=== PATIENT | male | born 1990 | race Caucasian/White ===

== ENCOUNTER 2019-03-19 03:15 | Emergency (ER) | payer MEDICAID ==
[~2019-03-19] VITALS: Ht 177.8 cm; Wt 83.9 kg
[2019-03-19 03:15] VITALS: BP 133/91
--- NOTE | 2019-03-19 03:22 | NUR ---
PT AMBULATED WITH SLOW STEADY GAIT FROM [facility] TO BED #8
--- NOTE | 2019-03-19 03:32 | NUR ---
28 Y/O MALE BIB AMBULANCE. PRESENTS TO ED, C/O RIGHT FACIAL SWELLING X6 DAYS. PT STATES TIGHTENING OF THROAT DUE TO FACIAL SWELLING; DENIES SOB/RESPIRATORY DISTRESS. FACIAL SWELLING IS WARM TO TOUCH, NO DISCHARGE/BLEEDING. PT STATES BEING RX UNKNOWN ABX FOR LEFT CHEST CELLULITIS. PT C/O LOWER BACK PAIN 03/01, HX OF SCIATICA; TOOK MOTRIN 2 DAYS AGO; MEDICATION INEFFECTIVE. PT STABLE.
[2019-03-19] MEDS ORDERED: cefTRIAXone 1,000 MG in LIDOCAINE MPF 1% 2.1 ML IM ONE (03:45)
[2019-03-19 03:58] VITALS: BP 133/91
--- NOTE | 2019-03-19 03:58 | NUR ---
PT DISCHARGED WITH PAPERWORK. RX KEFLEX, STRIBILD, BACTRIM. EDUCATED PT REGARDING MEDICATIONS AND S/E. EDUCATED PT REGARDING D/C DIAGNOSIS AND INSTRUCTIONS. PT VERBALIZED UNDERSTANDING OF TEACHING. TOLD PT TO FOLLOW UP WITH PCP AND WHEN TO RETURN TO ED. PT VSS. ALL QUESTIONS ANSWERED.
== END 2019-03-19 03:58 | disposition home or self-care (01) ==
LOC: MED 03:15
DX: L03.211 Cellulitis of face (principal); F17.210 Nicotine dependence, cigarettes, uncomplicated
CPT/HCPCS: 96372; 99283; J0696; J2001